=== PATIENT | male | born 1980 | race Caucasian/White ===

== ENCOUNTER 2017-04-18 13:06 | Emergency (ER) | payer OTHER ==
[~2017-04-18] VITALS: Ht 185.4 cm; Wt 79.4 kg
[2017-04-18 13:14] VITALS: BP 142/89
[2017-04-18 13:47] LABS: ASPARTATE AMINO TRANSFERASE 25 U/L (15-37); BLOOD UREA NITROGEN 21 mg/dL (7-18)
[2017-04-18 14:01] LABS: HIV 1&2 ANTIBODY SCREEN Nonreactive (Nonreactive); HIV-1 p24 ANTIGEN Nonreactive (Nonreactive)
== END 2017-04-18 13:34 | disposition home or self-care (01) ==
LOC: ED 13:12
DX: S61.210A Laceration without foreign body of right index finger without damage to nail, initial encounter (principal); W26.8XXA Contact with other sharp object(s), not elsewhere classified, initial encounter; Y93.89 Activity, other specified; Y92.89 Other specified places as the place of occurrence of the external cause; Y99.8 Other external cause status
CPT/HCPCS: 36415; 80053; 86703; 86803; 87899; 99284; G0435

== ENCOUNTER 2019-09-11 07:21 | Emergency (ER) | payer OTHER ==
[~2019-09-11] VITALS: Ht 185.4 cm; Wt 83.0 kg
[2019-09-11 07:24] VITALS: BP 138/84
[2019-09-11] MEDS ORDERED: DEXAMETHASONE 4 MG TABLET ONE (07:45)
--- NOTE | 2019-09-11 07:54 | NUR ---
SORE THROAT SINCE FRIDAY, WORSENING YESTERDAY AND THROUGH THE NIGHT
[2019-09-11] MEDS ORDERED: DEXAMETHASONE 4 MG TABLET PO ONE (08:00)
== END 2019-09-11 08:04 | disposition home or self-care (01) ==
LOC: ED 07:58
DX: J02.0 Streptococcal pharyngitis (principal)
CPT/HCPCS: 99283